=== PATIENT | female | born 1930 | race Caucasian/White ===

== ENCOUNTER 2017-02-10 01:55 | Inpatient (IN) | payer OTHER ==
[~2017-02-10] VITALS: Ht 152.4 cm; Wt 48.6 kg
[2017-02-10] VITALS (7 sets, daily range): BP systolic 130–155; BP diastolic 54–76; PULSE 81–98; RESP 17–30; TEMP 98.1; Ht 152.4 cm; Wt 48.6 kg
[2017-02-10] MEDS ORDERED: ASPIRIN 325 MG TAB PO STA (02:08)
[2017-02-10] MEDS ORDERED: SOD CHLORIDE 0.9% 1,000 ML IV STA (02:08)
--- NOTE | 2017-02-10 02:23 | RADRPT ---
PROCEDURE: CT Brain without contrast. CLINICAL INDICATION: Neurologic deficit. TECHNIQUE: A CT of the brain was performed utilizing axial sections from the skull base through th e vertex without contrast. Multiplanar re-formations were generated. Images were reviewed on a high- resolution PACS workstation. CTDIvol: 44.46 mGy. DLP: 720.23 mGy-cm. One or more of the following dose reduction techniques were used: - Automated exposure control. - Adjustment of the mA and/or kV according to patient size. - Use of iterative reconstruction technique. COMPARISON: None available FINDINGS: There is moderate generalized volume loss. No hydrocephalus is seen. There is no mass effect. No ac tangirnaq intracranial hemorrhage is identified. There is no extra-axial collection. No CT evidence of ac tangirnaq infarction is identified. There is patchy low attenuation in the supratentorial white matter, a nonspecific finding which most likely represents the sequela of mild chronic microvascular ischemic disease. There are extensive atherosclerotic arterial calcifications. There is no significant mucosal disease in the paranasal sinuses. The visualized mastoid air cells a re clear. The ossesous structures are unremarkable. The extracranial soft tissues are unremarkable. IMPRESSION: 1. No acute intracranial pathology. 2. Moderate generalized volume loss. 3. Mild chronic microvascular ischemic changes. 4. Atherosclerotic arterial calcifications. Critical Results were called to Dr. Morales at 02:21 a.m. on 02/10/2017. RPTAT: HTAR .Mckinley Tidwell MD, Date Time Electronically viewed and signed by .Mckinley Tidwell MD, on 02/10/2017 02:22 .R/
--- NOTE | 2017-02-10 02:50 | RADRPT ---
PROCEDURE: XR Chest. CLINICAL INDICATION: Possible stroke. TECHNIQUE: Single frontal view of the chest was obtained COMPARISON: Chest dated 11/24/2007. FINDINGS: Left anterior chest wall dual chamber cardiac pacer is new over interval. Lead tips overlie the exp ected location of the right atrium right ventricle. The cardiac pacer leads appear intact. Surgical changes again seen over the sternum and at the left lung apex. There is cardiomegaly with a calcified tortuous thoracic aorta. Cardiomegaly is increased over inter laly. Tortuosity of the thoracic aorta is increased over the interval. There is elevation of the left hemidiaphragm again seen, with loops of air-filled bowel interposed b elow the hemidiaphragm. This is without significant global climate change researcher the interval. There is left lung base atelectasis. There is mild pulmonary vascular congestion. There is no pleural effusion or pneumothorax. IMPRESSION: 1. Cardiomegaly, with mild pulmonary vascular congestion. 2. Left lung base atelectasis. 3. Interval left anterior chest wall dual chamber cardiac pacer, without evident complication. RPTAT: [facility] Physician Patrice Date Time Electronically viewed and signed by Physician Patrice on 02/10/2017 02:49 RS/
[2017-02-10 02:57] LABS: ADD SCAN DIFF NO
[2017-02-10 02:59] LABS: BASOPHILS % 0.2 % (0.0-2.0); HEMATOCRIT 33.8 % (37.0-47.0); HEMOGLOBIN 11.6 g/dl (12.0-16.0); LYMPHOCYTES # 0.7 10^3/ul (0.8-2.9); LYMPHOCYTES % 11.8 % (15.0-51.0); MEAN CORPUSCULAR HEMOGLOBIN 30.8 pg (29.0-33.0); MEAN CORPUSCULAR HGB CONC 34.3 g/dl (32.0-37.0); MEAN CORPUSCULAR VOLUME 89.7 fl (82.0-101.0); MEAN PLATELET VOLUME 9.9 fl (7.4-10.4); MONOCYTE # 0.8 10^3/ul (0.3-0.9); MONOCYTES % 14.8 % (0.0-11.0); PLATELET COUNT 198 10^3/UL (140-415); RED BLOOD COUNT 3.77 10^6/ul (4.20-5.40); RED CELL DISTRIBUTION WIDTH 12.6 % (11.5-14.5); WHITE BLOOD COUNT 5.5 10^3/ul (4.8-10.8)
[2017-02-10 03:10] LABS: ALBUMIN 3.7 g/dl (3.3-4.9)
[2017-02-10 03:11] LABS: POTASSIUM 4.2 mmol/L (3.5-5.1)
[2017-02-10 03:13] LABS: ALBUMIN/GLOBULIN RATIO 1.08; BILIRUBIN,INDIRECT 0.5 mg/dl (0-1.1); BILIRUBIN,TOTAL 0.5 mg/dl (0.2-1.3); CALCIUM 8.6 mg/dl (8.4-10.2); CREATININE 0.7 mg/dl (0.44-1.00); TOTAL PROTEIN 7.1 g/dl (6.1-8.1)
[2017-02-10 03:25] LABS: TROPONIN-I 0.016 ng/ml (0.00-0.12)
[2017-02-10] MEDS ORDERED: CEFTRIAXONE 1 GM/50 ML (PMX) 50 ML IVPB ONE (03:30)
[2017-02-10 03:56] LABS: ADD UMIC YES; URINE BILIRUBIN (Dip) NEGATIVE (NEGATIVE); URINE BLOOD (Dip) NEGATIVE (NEGATIVE); URINE COLOR LT. YELLOW (YELLOW); URINE GLUCOSE (Dip) NEGATIVE (NEGATIVE); URINE KETONES (Dip) TRACE (NEGATIVE); URINE LEUKOCYTE ESTERASE (Dip) 1+ (NEGATIVE); URINE NITRITE (Dip) NEGATIVE (NEGATIVE); URINE TOTAL PROTEIN (Dip) TRACE (NEGATIVE); URINE UROBILINOGEN (Dip) 0.2 E.U./dL (0.1-1.0)
[2017-02-10] MEDS ORDERED: ASPIRIN 300 MG SUPP PR ONE (04:30)
[2017-02-10 04:31] LABS: BACTERIA,URINE FEW; SQUAMOUS EPITHELIAL CELL,UR FEW; URINE RBCS NONE SEEN /HPF (0)
--- NOTE | 2017-02-10 04:42 | ERA ---
ER Documentation Chief Complaint Date/Time DATE: 02/10/17 TIME: 04:34 Chief Complaint aphasia x 3 hours; last known well 2300 HPI 86-year-old woman brought in by EMS from home for 3 hours of a fascia, patient last seen normal by family members 3 hours ago. They stated she had difficulty speaking and was generally not speaking to any other family member for 3 hours she did not have expressive dysarthria, no weakness in her arms or legs, no vomiting or diarrhea, no loss of consciousness, no seizure activity, no facial asymmetry, no drooling or difficulty swallowing. Patient has had no recent headaches, chest pain, or abdominal pain. Patient was transported here without further complications. ROS All systems reviewed and are negative except as per history of present illness. Allergies Allergies: Coded Allergies: No Known Allergy (Verified Allergy, Unknown, 11/25/07) PMhx/Soc Medical and Surgical Hx: Unable to obtain Hx Alcohol Use: No Hx Substance Use: No Hx Tobacco Use: No Smoking Status: Never smoker FmHx Family History: No diabetes Physical Exam Vitals Vital Signs Date Time Temp Pulse Resp B/P Pulse Ox O2 Delivery O2 Flow Rate FiO2 02/10/17 03:37 100.5 83 23 117/62 100 Nasal Cannula 02/10/17 03:20 20 125/71 100 Nasal Cannula 02/10/17 02:51 Nasal Cannula 2 02/10/17 02:50 82 21 117/61 100 Nasal Cannula 02/10/17 02:30 83 20 122/76 100 Nasal Cannula 02/10/17 02:20 76 22 126/63 Nasal Cannula 02/10/17 01:57 99.2 83 18 132/67 100 Physical Exam GENERAL: Well-developed, well-nourished, appears dehydrated, febrile HEENT: Dry mucous membranes, pink conjunctiva, no cervical spine tenderness or step-off deformities, no goiter, no jaundice or icterus, extraocular movements intact without pain. No submandibular induration, and no pharyngeal erythema NEURO: Able to follow simple commands, no pronator drift, positive aphasia, cranial nerves II through XII intact bilaterally, pupils equal round reactive to light, no focal deficits or facial asymmetry, sensation intact distally Strength 5/5 in upper and lower extremities bilaterally CARDIAC: Regular rate and rhythm, no murmurs rubs or gallops LUNGS: Clear bilaterally no wheezing crackles or stridor ABDOMEN: Soft nontender, no guarding, no rigidity, no rebound, no psoas sign no obturator sign. Normoactive bowel sounds SKIN: Warm and dry to touch, no abrasions, contusions, or hematomas, no lacerations, no ecchymosis, no target lesions, and without ulcers EXTREMITIES: No clubbing cyanosis or edema, calves are bilaterally symmetrical, no Homans sign, no popliteal cord sign. Distal pulses equal and bilateral PSYCH: Normal affect without agitation or irritability Result Diagram: 02/10/17 0251 02/10/17 0251 Results 24 hrs Laboratory Tests Test 02/10/17 02:28 02/10/17 02:51 02/10/17 03:23 Bedside Glucose 216mg/dL White Blood Count 5.510^3/ul Red Blood Count 3.7710^6/ul Hemoglobin 11.6g/dl Hematocrit 33.8% Mean Corpuscular Volume 89.7fl Mean Corpuscular Hemoglobin 30.8pg Mean Corpuscular Hemoglobin Concent 34.3g/dl Red Cell Distribution Width 12.6% Platelet Count 06956^3/UL Mean Platelet Volume 9.9fl Neutrophils % 73.0% Lymphocytes % 11.8% Monocytes % 14.8% Eosinophils % 0.0% Basophils % 0.2% Nucleated Red Blood Cells % 0.0/100WBC Neutrophils # 4.010^3/ul Lymphocytes # 0.710^3/ul Monocytes # 0.810^3/ul Eosinophils # 0.010^3/ul Basophils # 0.010^3/ul Nucleated Red Blood Cells # 0.010^3/ul Sodium Level 127mmol/L Potassium Level 4.2mmol/L Chloride Level 93mmol/L Carbon Dioxide Level 24mmol/L Anion Gap 14 Blood Urea Nitrogen 13mg/dl Creatinine 0.70mg/dl Glucose Level 220mg/dl Hemoglobin A1c 6.6% Calcium Level 8.6mg/dl Total Bilirubin 0.5mg/dl Direct Bilirubin 0.00mg/dl Indirect Bilirubin 0.5mg/dl Aspartate Amino Transf (AST/SGOT) 41IU/L Alanine Aminotransferase (ALT/SGPT) 36IU/L Alkaline Phosphatase 86IU/L Troponin I 0.016ng/ml Total Protein 7.1g/dl Albumin 3.7g/dl Globulin 3.40g/dl Albumin/Globulin Ratio 1.08 Urine Color LT. YELLOW Urine Clarity CLEAR Urine pH 6.0 Urine Specific Custer 1.015 Urine Ketones TRACE Urine Nitrite NEGATIVE Urine Bilirubin NEGATIVE Urine Urobilinogen 0.2 E.U./dL Urine Leukocyte Esterase 1+ Urine Microscopic RBC NONE SEEN/HPF Urine Microscopic WBC 2-5/HPF Urine Squamous Epithelial Cells FEW Urine Bacteria FEW Urine Hemoglobin NEGATIVE Urine Glucose NEGATIVE% Urine Total Protein TRACE Current Medications Medications (Trade) Dose Ordered Sig/Otis Route PRN Reason Start Time Stop Time Status Last Admin Dose Admin Sodium Chloride (NS) 1,000 ml @ 1,000 mls/hr Q1H STAT IV 02/10/17 02:08 02/10/17 03:07 DC 02/10/17 04:05 Aspirin 325 mg 325 mg ONCE STAT PO 02/10/17 02:08 02/10/17 02:10 DC Ceftriaxone Sodium (Rocephin) 50 ml @ 100 mls/hr ONCE ONCE IVPB 02/10/17 03:30 02/10/17 03:59 DC 02/10/17 04:07 Aspirin (Aspirin) 300 mg ONCE ONCE KS 02/10/17 04:30 02/10/17 04:31 DC 02/10/17 04:30 Procedures/MDM IV line was established patient was placed on continuous churn buttermaker rhythm strip revealed an intermittently paced rhythm at about 90 bpm. Patient was febrile. Blood and urine cultures have been ordered results are pending I will follow- up. Blood sugar was normal. Patient presented with 3 hours of aphasia and there was concern for stroke although unlikely, code stroke was called. Patient could not pass her swallow study technically because she did present with aphasia. CT scan of the brain was negative for acute bleed mass or shift. Tele-neurology was immediately consulted and they called back about an hour after patient's arrival. We discussed the patient's case including her aphasia and fever and the tele-neurologist recommended against TPA and also stated presentation patient was out of the window for TPA treatment. CBC was unremarkable, electrolytes normal, liver function tests were normal, troponin was negative. Urine analysis was concerning for infection. I administered 1 L normal saline intravenously, aspirin 300 mg per rectum for neuro protective measures, and ceftriaxone 1 g IV for possible UTI. One view chest x-ray performed, read by me there is atelectatic changes bilaterally and a pacemaker in the left chest, no acute infiltrates, no pneumothorax. Patient admitted to telemetry setting for continued medical management, IV antibiotics, and neurology consultation. Further imaging to be deferred to admitting team. Departure Diagnosis: Primary Impression: Altered level of consciousness Additional Impressions: UTI (urinary tract infection) Qualified Code: N30.00 - Acute cystitis without hematuria Dehydration Aphasia Condition: DONALD Trammell MD Feb 10, 2017 04:42
[2017-02-10 07:14] LABS: INR 1.08; PT RATIO 1.1
[2017-02-10 07:15] LABS: PARTIAL THROMBOPLASTIN TIME 33.7 Sec (25.0-35.0)
[2017-02-10] MEDS ORDERED: NACL 0.9% 3 ML SYG IV SCH (08:30)
[2017-02-10] MEDS ORDERED: morphine 2 MG INJ IV PRN (08:30)
[2017-02-10] MEDS ORDERED: ACETAMINOPHEN 325 MG TAB PO PRN (08:30)
[2017-02-10] MEDS ORDERED: ONDANSETRON 4 MG INJ IV PRN (08:30)
--- NOTE | 2017-02-10 09:51 | RADRPT ---
PROCEDURE: US Carotids. CLINICAL INDICATION: Stroke. TECHNIQUE: Multiple sonographic of the carotid arteries were obtained utilizing olea scale imaging . Color and Doppler imaging was performed. The images were reviewed on a PACS workstation. COMPARISON: No prior studies are available for comparison. FINDINGS: Location Right Left CCA 78 cm/sec 149 cm/sec Prox ICA 40 cm/sec 95 cm/sec Mid ICA 46 cm/sec 98 cm/sec Dist ICA 78 cm/sec 67 cm/sec ECA 7 cm/sec 109 cm/sec ICA/CCA 1.1 0.7 Antegrade flow is seen within the vertebral arteries bilaterally. No significant plaque is seen with in the carotid system bilaterally. No hemodynamically significant stenosis or occlusion is identifi ed. IMPRESSION: 1. No evidence for hemodynamically significant stenosis - validated velocity measurements with angio graphic measurements, velocity criteria are extrapolated from diameter data as defined by the Societ y of Radiologists in Ultrasound Consensus Conference Radiology 2003; 229;340-346. This study does i ndirectly reference the measurement of the distal ICA diameter as the denominator for stenosis measu rement. 2. Antegrade flow seen within the vertebral arteries bilaterally. SRU Consensus Conference Criteria for the Diagnosis of Carotid Artery Stenosis Degree of Stenosis, % ICA PSV, cm/sec Plaque Estimate, % ICA/CCA PSV Ratio Normal <125 None <2.0 <50 <125 <50 <2.0 50 69 125-230 >50 2.0-4.0 >70 but less than near occlusion >230 >50 <4.0 Near occlusion High, low, or undetectable Visible Variable Total occlusion Undetectable Visible, no detectable lumen Not applicable *Cartoid artery stenosis: olea-scale and Doppler US diagnosis. Society of Radiologists in Ultrasound Consensus Conference. Radiology 2003; 229: 340-346 RPTAT: EE .Khalif Mendoza MD, Date Time Electronically viewed and signed by .Khalif Mendoza MD, on 02/10/2017 09:51 .A/
--- NOTE | 2017-02-10 11:22 | HP ---
Date/Time of Note Date/Time of Note DATE: 02/10/17 TIME: 11:19 Assessment/Plan VTE Prophylaxis VTE Prophylaxis Intervention: heparin Assessment/Plan Assessment/Plan 1. TIA vs acute CVA - Aspirin, statin, and subq Heparin - CT head was neg. Will obtain MRI of the brain - Neurology consult will be placed - PT eval and speech/swallow Eval - Will check Fasting lipids and A1c 2. Hyponatremia - NS IVF for now HPI/ROS Admit Date/Time Admit Date/Time Hx of Present Illness 86-year-old woman brought in by EMS from home for 3 hours of a fascia, patient last seen normal by family members 3 hours ago. They stated she had difficulty speaking and was generally not speaking to any other family member for 3 hours she did not have expressive dysarthria, no weakness in her arms or legs, no vomiting or diarrhea, no loss of consciousness, no seizure activity, no facial asymmetry, no drooling or difficulty swallowing. Patient has had no recent headaches, chest pain, or abdominal pain. Patient was transported here without further complications. In ER, CT head was done and was neg. Her sodium was 127. PMH/Family/Social Past Medical History Medical History: no pertinent history Social History Alcohol Use: none Smoking Status: Never smoker Drug Use: none Exam/Review of Systems Vital Signs Vitals Vital Signs Date Time Temp Pulse Resp B/P Pulse Ox O2 Delivery O2 Flow Rate FiO2 02/10/17 06:50 98.1 83 20 130/68 100 Nasal Cannula 2.0 Exam Constitutional: other (looks comfortable. Attemted to say her name, but had difficulty) Head: atraumatic, normocephalic Eyes: EOMI, PERRL Respiratory: clear to auscultation, normal air movement Cardiovascular: nl pulses, regular rate and rhythm Gastrointestinal: non-tender, soft Neurological: other (+dysarthria. sensations intact. No focal weakness. Had decreased garland maker of both hands, but likely generalized weakness and age related) Labs Result Diagram: 02/10/17 0251 02/10/17 0251 Medications Medications Current Medications Ondansetron HCl (Zofran Inj) 4 mg Q6H PRN IV NAUSEA AND/OR VOMITING; Start 02/10 at 08:30 Aspirin (Aspirin) 81 mg DAILY PO ; Start 02/11/17 at 09:00 Acetaminophen (Tylenol Tab) 650 mg Q6H PRN PO PAIN LEVEL 1-3 OR FEVER; Start at 08:30 Morphine Sulfate (morphine) 2 mg Q4H PRN IV PAIN LEVEL 7-10; Start 02/10/17 at 08:30 Heparin Sodium (Porcine) (Heparin (5000 Units/0.5 ml)) 5,000 unit Q12 SC ; Start 02/10/17 at 09:00 Atorvastatin Calcium (Lipitor) 20 mg QHS PO ; Start 02/10/17 at 21:00 KHARI BLOOM MD Feb 10, 2017 11:22
[2017-02-10] MEDS: HEPARIN 5,000 UNIT/0.5 ML VIAL SC SCH ×2 (12:29→21:02)
[2017-02-10] MEDS: SOD CHLORIDE 0.9% 1,000 ML IV SCH (12:30)
--- NOTE | 2017-02-10 15:23 | CONS ---
DATE OF ADMISSION: 02/10/2017 DATE OF CONSULTATION: 02/10/2017 Thank you, Dr. Chiu, for your kind referral for evaluation of CVA. HISTORY OF PRESENT ILLNESS: The patient presented with 3 hours of impaired speech. She was evaluat ed by stroke neurologist who did not find her meeting criteria for TPA because she was outside of th e timeframe window. Patient had CAT scan of the head, which shows absence of acute abnormality. Chest x-ray: Cardiomeg yon, vascular congestion, left basilar atelectasis. Carotid ultrasound within normal limits. No kn own previous medical history. No recorded medications prior to admission. MEDICATIONS: Currently, she is on: 1. Aspirin. 2. Lipitor 20. 3. Heparin for DVT prevention. 4. She received 1 dose of ceftriaxone. According to ER note, at some point she was febrile at 100.5. Her labs show hemoglobin 11.6, hematocrit 33.8, normal WBCs and platelets. Sodium 127, chloride 93. Hemoglobin A1c 6.6. The rest of comprehensive metabolic panel within normal limits. Normal PT, P TT. Urinalysis 1+ leukocyte esterase, trace of ketones. The monitor shows atrial fibrillation. ALLERGIES: NONE. SOCIAL HISTORY, FAMILY HISTORY, REVIEW OF SYSTEMS: Unknown; the patient is not able to provide. PHYSICAL EXAMINATION: VITAL SIGNS: A 98.1 temperature, 82 pulse, 18 respirations, 128/76 blood pressure. GENERAL: She is not in acute distress, lying on gurney in the emergency room. HEENT: Normocephalic, atraumatic head. NECK: No carotid bruits. No thyromegaly. LUNGS: Clear to auscultation bilaterally. CARDIAC: Irregularly irregular cardiac rhythm. EXTREMITIES: No cyanosis, clubbing or edema. NEUROLOGIC: She is awake. She follows commands with prompting. She is dysarthric and also has lydia e naming difficulties and is aphasic. She is able to repeat and follow simple commands, but not com plex commands. Cranial nerve examination shows intact visual alvarado to visual threat bilaterally. Pupils reactive from 3 to 2 mm bilaterally. Extraocular movements intact without nystagmus. Symmet rical face. Preserved facial strength. Corneal reflexes present bilaterally. Tongue is in midline . Motor strength examination seems to be preserved. No pronator drift. Sensory examination grossl y intact to light touch. She withdraws to noxious stimuli. Deep tendon reflexes 2+ upper extremiti es, 1+ knee jerks, absent ankle jerks. Downgoing toes bilaterally. Coordination preserved on finge r-to-finger testing. No dysmetria or tremor. Gait was not assessed. IMPRESSION: Sudden onset of aphasia, also some dysphagia as the patient failed swallow study. No k nown past medical history. The patient is not able to provide all the details, but her hemoglobin A 1c is elevated. At least on the monitor she seems to have some irregularity, possibly atrial fibril lation, but I did not see the EKG; I will leave that to the primary doctor to decide. I agree that patient should be continued on aspirin for now. We will obtain MRI of the brain. Carotid ultrasoun d was done and will obtain echocardiogram. Continue Lipitor. We will obtain a lipid profile and sw allow evaluation to be repeated and speech therapy to be started. Thank you very much for this interesting consultation. Keep patient euglycemic. Usually it is okay to elevate the blood pressure up to 220/140 in the first 1 or 2 days after acute stroke, then shorty ally obtain control afterwards. Dictated By: RHONDA KENNY/JEOVANNY Conf#: [id number] DID#: [id number]
[2017-02-10] MEDS: ATORVASTATIN 20 MG TAB PO SCH (21:01)
[2017-02-10] MEDS ORDERED: DEXTROSE 50% 50 ML SYRINGE IV PRN ×2 (23:45)
[2017-02-10] MEDS ORDERED: GLUCAGON 1 MG INJ IM PRN (23:45)
[2017-02-10] MEDS ORDERED: GLUCOSE GEL 15 GRAM TUBE PO PRN ×2 (23:45)
[2017-02-10] MEDS ORDERED: GLUCOSE GEL 15 GRAM TUBE BUCCAL PRN (23:45)
[2017-02-11] VITALS (13 sets, daily range): BP systolic 122–168; BP diastolic 68–79; PULSE 81–98; RESP 18–20
[2017-02-11] MEDS: METOPROLOL 25 MG TAB PO SCH ×3 (00:10→20:47)
[2017-02-11] MEDS: SOD CHLORIDE 0.9% 1,000 ML IV SCH ×3 (00:50→14:10)
[2017-02-11] MEDS: ACCU-CHEK XX SCH (02:00)
[2017-02-11] MEDS ORDERED: GLIP5TAB13 PO (05:44)
[2017-02-11] MEDS ORDERED: OMEP40CA6 PO (05:44)
[2017-02-11] MEDS ORDERED: METO-448 PO (05:44)
[2017-02-11] MEDS ORDERED: AMLO-147 PO (05:44)
[2017-02-11] MEDS ORDERED: SUCR1TAB56 PO (05:44)
[2017-02-11] MEDS ORDERED: CALC-516 PO (05:44)
[2017-02-11] MEDS ORDERED: LOSA100T7 PO (05:44)
[2017-02-11] MEDS ORDERED: FURO40TA4 PO (05:44)
[2017-02-11] MEDS ORDERED: RIVA15TA PO (05:44)
[2017-02-11] MEDS ORDERED: GABA300C16 PO (05:44)
[2017-02-11] MEDS ORDERED: OMEG1CAP20 PO (05:44)
[2017-02-11 07:08] LABS: ADD SCAN DIFF NO
[2017-02-11 07:15] LABS: ABNORMAL IP MESSAGE 1; BASOPHILS % 0.2 % (0.0-2.0); HEMATOCRIT 31.5 % (37.0-47.0); HEMOGLOBIN 10.7 g/dl (12.0-16.0); LYMPHOCYTES # 0.6 10^3/ul (0.8-2.9); LYMPHOCYTES % 13.2 % (15.0-51.0); MEAN CORPUSCULAR HEMOGLOBIN 31.1 pg (29.0-33.0); MEAN CORPUSCULAR VOLUME 91.6 fl (82.0-101.0); MEAN PLATELET VOLUME 9.8 fl (7.4-10.4); MONOCYTE # 0.6 10^3/ul (0.3-0.9); MONOCYTES % 13.7 % (0.0-11.0); NEUTROPHIL # 3.2 10^3/ul (1.6-7.5); NEUTROPHILS % 72.7 % (39.0-77.0); PLATELET COUNT 206 10^3/UL (140-415); RED BLOOD COUNT 3.44 10^6/ul (4.20-5.40); RED CELL DISTRIBUTION WIDTH 12.7 % (11.5-14.5); WHITE BLOOD COUNT 4.5 10^3/ul (4.8-10.8)
[2017-02-11 07:33] LABS: ALBUMIN 3.4 g/dl (3.3-4.9)
[2017-02-11 07:34] LABS: POTASSIUM 3.6 mmol/L (3.5-5.1)
[2017-02-11 07:36] LABS: BILIRUBIN,INDIRECT 0.3 mg/dl (0-1.1); BILIRUBIN,TOTAL 0.3 mg/dl (0.2-1.3); CREATININE 0.56 mg/dl (0.44-1.00); TOTAL PROTEIN 6.8 g/dl (6.1-8.1)
[2017-02-11 07:37] LABS: CALCIUM 8.2 mg/dl (8.4-10.2); CHOL/HDL RATIO 2.8 RATIO; MAGNESIUM 2.1 mg/dl (1.7-2.5)
[2017-02-11] MEDS: INSULIN ASPART [NOVOLOG] 3 ML PEN SC SCH ×4 (07:55→20:49)
[2017-02-11 07:58] LABS: THYROID STIMULATING HORMONE 0.362 MIU/L (0.465-4.680)
[2017-02-11] MEDS: HEPARIN 5,000 UNIT/0.5 ML VIAL SC SCH ×2 (08:50→20:49)
[2017-02-11] MEDS ORDERED: ASPIRIN 81 MG TAB PO SCH (09:00)
--- NOTE | 2017-02-11 12:04 | PN ---
DATE: 02/11/2017 SUBJECTIVE DATA: Denies any chest pain or dyspnea. Still having expressive aphasia. The patient was up and walking with physical therapy today. OBJECTIVE DATA: VITAL SIGNS: Temperature 98.5, pulse rate 96, respiratory rate 20, blood pressure 141/68, oxygen saturation 98% on low flow O2. GENERAL: This is an adequately built [place] female lying in bed in no apparent distress. HEENT: Head normocephalic and atraumatic. Eyes: Anicteric sclerae. Conjunctivae clear. ENT: Nasal septum is midline. Oral mucosa is moist. NECK: Supple. No JVD noticed. RESPIRATORY: Bilaterally clear to auscultation. No adventitious breath sounds. No use of accessory muscles of respiration. CARDIAC: Irregularly irregular rhythm. No obvious murmurs heard. Median sternotomy scar. ABDOMEN: Soft, nontender and nondistended. Bowel sounds positive in all 4 quadrants. GENITOURINARY: Deferred. EXTREMITIES: No cyanosis, no clubbing, no edema. Peripheral pulses are palpable. NEUROLOGIC: The patient is awake, alert and oriented. Moves all 4 extremities. Expressive aphasia. SKIN: Normal skin turgor. ALLERGIES: ASPIRIN. LABORATORY AND DIAGNOSTIC DATA: WBC 4.5, hemoglobin 10.7, hematocrit 31.5, platelet count 206. Sodium 130, potassium 3.6, chloride 102, carbon dioxide 22 , anion gap 11, BUN 9, creatinine 0.56, glucose 162, calcium 8.2, hemoglobin A1c 6.6. ASSESSMENT & PLAN: 1. Possible underlying acute stroke versus TIA. Seen and evaluated by neurology. A brain CT scan negative for any acute findings. Unable to do brain MRI because of the pacemaker. THE PATIENT IS ALLERGIC TO ASPIRIN. The patient was started on Plavix. The patient will be continued on statins. Carotid Doppler study negative for any hemodynamically significant stenosis. Pending 2D echocardiogram. 2. Atrial flutter. We will involve Cardiology on the case. The patient probably needs to be on anticoagulation for stroke prophylaxis if the patient has chronic atrial flutter. 3. Coronary artery disease. 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 Continue Plavix. Continue home beta blockers. 4. Type 2 diabetes mellitus. The patient currently on sliding scale insulin. 5. Acute encephalopathy. Possibly metabolic in origin Resolved. 6. Dyslipidemia. Continue statins. 7. Fluid, electrolytes and nutrition. Carbohydrate controlled, low cholesterol diet. 8. Deep venous thrombosis prophylaxis with subcutaneous heparin. 9. Gastrointestinal prophylaxis. Histamine 2 receptor blockers. PLAN: 1. Continue inpatient care. 2. Await 2D echocardiogram. 3. Await cardiology evaluation. The case was discussed with Dr. Chino. MANJIT CHINO MD, AM/JEOVANNY Conf#: [id number] DID#: [id number] MTDD
--- NOTE | 2017-02-11 14:33 | RADRPT ---
Echocardiogram Report Patient Name: DOMENICO KRAMER Gender: Female Date: 1930 Study Date: 11-Feb-2017 Supervisor [employer]: [facility] Location: 503 Ref. Physician: KHARI BLOOM Quality: Technically Difficult Study Procedures: Transthoracic echocardiogram with complete 2D, M-Mode, and doppler examination. Indications: STROKE. 2D/M Mode Doppler Measurement Value Normal Ranges Measurement Value Normal Ranges LVIDd 2D 3.7 3.5 - 5.6 cm AV Peak Jason 1.8 m/sec LVIDs 2D 2.3 2.1 - 4.1 cm AV Peak PG 13.0 mmHg FS 2D 37.3 % LVOT Peak Jason 1.4 m/sec LVPWd 2D 1.1 0.6 - 1.1 cm LVOT Peak PG 7.0 mmHg IVSd 2D 1.0 0.6 - 1.1 cm MV E Peak Jason 1.6 m/sec IVS/LVPW 2D 0.9 MR Peak PG 113.0 mmHg AoR Diam 2D 2.2 2.0 - 3.7 cm MR Peak Jason 5.3 m/sec LA/Ao 2D 2 0 - 1 TR Peak Jason 3.3 m/sec EDV 2D 49.4 cm3 TR Peak PG 43.0 mmHg ESV 2D 12.2 cm3 LA Dimen 2D 4.3 2.3 - 4.0 cm Findings Left Ventricle: Normal left ventricular systolic function. Hyperdynamic left ventricular systolic function. Left ventricular wall thickness upper limits of normal. Ejection fraction is visually estimated at >70 %. Tissue Doppler/Mitral Doppler indices are indeterminate in this study due to the presence of arrhythmia. Right Ventricle: Not well visualized. Left Atrium: There is moderate enlargement of left atrium. Right Atrium: Not well visualized. Mitral Valve: Mild mitral leaflet calcification. Mild mitral annular calcification. Mild to moderate mitral valve regurgitation. Aortic Valve: No hemodynamically significant aortic stenosis by doppler. Aortic cusps appear mildly calcified. Trace aortic valve regurgitation. Tricuspid Valve: Estimated peak PA systolic pressure 51 mmHg. There is mild tricuspid regurgitation. Pulmonic Valve: There is trace pulmonic regurgitation. Pericardium: Normal pericardium with no significant pericardial effusion. Aorta: Normal aortic root. IVC: Inferior vena cava with poor respiratory collapse, however, patient on ventilator. Conclusions 1.The left ventricle is normal in size with hyperdynamic systolic function. 2.Estimated left ventricular ejection fraction of >70%. 3.Moderate left atrial enlargement. 4.Estimated RVSP of 51 mmHg. Electronically Signed By: Andre Padilla 11-Feb-2017 14:32:33 -0700 Patient Name: DOMENICO KRAMER Study Date: 11-Feb-2017 [id number]
[2017-02-11] MEDS: FAMOTIDINE 20 MG TAB PO SCH (18:02)
[2017-02-11] MEDS: ATORVASTATIN 20 MG TAB PO SCH (20:47)
[2017-02-11] MEDS: INSULIN GLARGINE [LANtus] 3 ML PEN SC SCH (20:48)
--- NOTE | 2017-02-11 21:54 | CONS ---
DATE OF ADMISSION: 02/10/2017 DATE OF CONSULTATION: 02/11/2017 REFERRING PHYSICIAN: Vikash Yusuf NP REASON FOR CONSULTATION: Atrial flutter and possible cerebrovascular accident. HISTORY OF PRESENT ILLNESS: Thank you for this referral. History obtained from the patient, maynor grissom with multiple family members at the bedside. This is a pleasant 86-year-old Filipina female wi th history of atrial fibrillation and flutter status post sick sinus syndrome with a permanent pacem esteban, who was admitted with confusion. According to the family, the patient has had a headache for a few days. Yesterday morning, she was noted to be mumbling and she was confused, brought into the emergency room. Her speech has improved, but still has significant slurred speech. She is not conf used anymore. Head CT was unremarkable, but MRI could not be done due to the patient's pacemaker. The patient apparently is on chronic Xarelto. PAST MEDICAL HISTORY: History of diabetes, history of hypertension, history of sick sinus syndrome with permanent pacemaker, history of possible dyslipidemia. MEDICATIONS AT HOME: Reviewed. ALLERGIES: REPORTEDLY TO [facility]. FAMILY HISTORY: No reported coronary artery disease. SOCIAL HISTORY: Does not smoke or drink. REVIEW OF SYSTEMS: As above negative. PHYSICAL EXAMINATION: VITAL SIGNS: Temperature 97.7, heart rate of 93, blood pressure 168/78, respiration rate of 18, sat urating 99%. HEENT: Normocephalic, atraumatic. Pupils are equal. CARDIOVASCULAR: Irregularly irregular, systolic murmur. PULMONARY: With no wheezes. CHEST: Status post pacemaker. GASTROINTESTINAL: Soft, nontender. EXTREMITIES: With trivial edema. NEUROLOGIC: Awake and alert, oriented x3 with slurred speech. PSYCHIATRIC: Calm and pleasant. LABORATORY: WBC of 4.5, hemoglobin 10.7, platelets of 206. Sodium 131, potassium 3.6, BUN of 9, cr eatinine 0.56, glucose 162, LDL of 77, HDL of 42. TSH 0.3. Free T4 is 1.66. EKG flutter, ve ntricular demand pacemaker, nonspecific T-wave abnormalities. CT of the head shows no acute intracr anial pathology. Chest x-ray was personally reviewed, which shows cardiomegaly status post dual katharine mber permanent pacemaker. Left lung base atelectasis. Carotid ultrasound shows no significant sten osis. ASSESSMENT AND PLAN: 1. Possible cerebrovascular accident. 2. Sick sinus syndrome, permanent pacemaker. 3. Atrial flutter, chronic anticoagulation. 4. Diabetes. 5. Hypertension. RECOMMENDATIONS: We will try to interrogate the pacemaker tomorrow to see if it can be compatible w ith MRI. Permissive hypertension . Resume the patient's Xarelto as soon as okay from neurolog y standpoint given her possible acute CVA. Diabetic control as per internal medicine. Thank you for this referral. We will continue to follow along with you. Dictated By: MALCOLM GONZALES MD AV/JEOVANNY Conf#: [id number] DID#: [id number] CC: VIKASH YUSUF CELL OPERATION SUPERVISOR;*End*
[2017-02-12] VITALS (11 sets, daily range): BP systolic 137–162; BP diastolic 66–80; PULSE 79–96; RESP 18
[2017-02-12] MEDS: ACCU-CHEK XX SCH (02:00)
[2017-02-12] MEDS: SOD CHLORIDE 0.9% 1,000 ML IV SCH ×3 (03:30→16:50)
[2017-02-12] MEDS: INSULIN ASPART [NOVOLOG] 3 ML PEN SC SCH ×4 (07:55→20:43)
[2017-02-12 07:57] LABS: ADD SCAN DIFF NO
[2017-02-12 08:08] LABS: BASOPHILS % 0.2 % (0.0-2.0); EOSINOPHILS % 0.4 % (0.0-7.0); HEMATOCRIT 32.2 % (37.0-47.0); HEMOGLOBIN 10.7 g/dl (12.0-16.0); LYMPHOCYTES # 1.2 10^3/ul (0.8-2.9); LYMPHOCYTES % 22.4 % (15.0-51.0); MEAN CORPUSCULAR HEMOGLOBIN 30.8 pg (29.0-33.0); MEAN CORPUSCULAR HGB CONC 33.2 g/dl (32.0-37.0); MEAN CORPUSCULAR VOLUME 92.8 fl (82.0-101.0); MEAN PLATELET VOLUME 9.9 fl (7.4-10.4); MONOCYTE # 0.7 10^3/ul (0.3-0.9); MONOCYTES % 13.7 % (0.0-11.0); NEUTROPHIL # 3.3 10^3/ul (1.6-7.5); NEUTROPHILS % 63.1 % (39.0-77.0); PLATELET COUNT 237 10^3/UL (140-415); RED BLOOD COUNT 3.47 10^6/ul (4.20-5.40); RED CELL DISTRIBUTION WIDTH 12.7 % (11.5-14.5); WHITE BLOOD COUNT 5.3 10^3/ul (4.8-10.8)
[2017-02-12 08:15] LABS: POTASSIUM 3.4 mmol/L (3.5-5.1)
[2017-02-12 08:16] LABS: PHOSPHORUS 3.2 mg/dl (2.5-4.9)
[2017-02-12 08:18] LABS: CREATININE 0.52 mg/dl (0.44-1.00)
[2017-02-12 08:19] LABS: CALCIUM 8.3 mg/dl (8.4-10.2)
--- NOTE | 2017-02-12 09:36 | PN ---
Date/Time of Note Date/Time of Note DATE: 02/12/17 TIME: 09:35 Assessment/Plan VTE Prophylaxis VTE Prophylaxis Intervention: heparin Lines/Catheters IV Catheter Type (from [facility]): Peripheral IV Urinary Cath still in place: No Assessment/Plan Chief Complaint/Hosp Course 1. Possible underlying acute stroke versus TIA. Seen and evaluated by neurology. A brain CT scan negative for any acute findings. Unable to do brain MRI because of the pacemaker. Continue Plavix. The patient was started on Plavix. The patient will be continued on statins. Carotid Doppler study negative for any hemodynamically significant stenosis. 2. Atrial flutter. Chronic. The patient was on factor Xa inhibitors at home. This will be resumed once cleared by neurology. 3. Coronary artery disease. 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 Continue Plavix. Continue beta blockers. 4. Type 2 diabetes mellitus. Hemoglobin A1c 6.6. The patient currently on sliding scale insulin. 6. Dyslipidemia. Continue statins. 7. Hyperdynamic left ventricular systolic function. Continue to monitor. Cardiology following. 8. Pulmonary hypertension. RVSP of 51 mm Hgl as per 2D echocardiogram. Continue supplemental oxygen. 9. Fluid, electrolytes and nutrition. Carbohydrate controlled, low cholesterol diet. 10. Deep venous thrombosis prophylaxis with subcutaneous heparin. 11. Gastrointestinal prophylaxis. Histamine 2 receptor blockers. PLAN: 1. Continue inpatient care. 2. Cardiology planning on interrogation of the pacer. The case was discussed with Dr. Wolf. Problems: Subjective 24 Hr Interval Summary Free Text/Dictation Denies any chest pain. Complains of dyspnea. Exam/Review of Systems Vital Signs Vitals Vital Signs Date Time Temp Pulse Resp B/P Pulse Ox O2 Delivery O2 Flow Rate FiO2 02/12/17 08:09 84 02/12/17 07:24 98.6 18 138/66 96 02/12/17 01:30 Nasal Cannula 2.0 Intake and Output 02/11/17 02/11/17 02/12/17 15:00 23:00 07:00 Intake Total 1375 ml 540 ml Output Total 600 ml Balance 1375 ml -60 ml Exam GENERAL: This is an adequately built Mosotho female lying in bed in no apparent distress. HEENT: Head normocephalic and atraumatic. Eyes: Anicteric sclerae. Conjunctivae clear. ENT: Nasal septum is midline. Oral mucosa is moist. NECK: Supple. No JVD noticed. RESPIRATORY: Bilaterally diminished breath sounds. Minimal use of accessory muscles of respiration. Bilateral fine rales. CARDIAC: Irregularly irregular rhythm. Median sternotomy scar. ABDOMEN: Soft, nontender and nondistended. Bowel sounds positive in all 4 quadrants. GENITOURINARY: Deferred. EXTREMITIES: No cyanosis, no clubbing, no edema. Peripheral pulses are palpable. NEUROLOGIC: The patient is awake, alert and oriented. Moves all 4 extremities. Expressive aphasia. SKIN: Normal skin turgor. Results Result Diagram: 02/12/17 0655 02/12/17 0655 Results 24 hrs Laboratory Tests Test 02/11/17 12:09 02/11/17 17:32 02/11/17 20:45 02/12/17 06:25 Bedside Glucose 172 165 178 Phosphorus Level 3.2 Magnesium Level 2.0 Test 02/12/17 06:55 02/12/17 08:14 White Blood Count 5.3 Red Blood Count 3.47 L Hemoglobin 10.7 L Hematocrit 32.2 L Mean Corpuscular Volume 92.8 Mean Corpuscular Hemoglobin 30.8 Mean Corpuscular Hemoglobin Concent 33.2 Red Cell Distribution Width 12.7 Platelet Count 237 Mean Platelet Volume 9.9 Neutrophils % 63.1 Lymphocytes % 22.4 Monocytes % 13.7 H Eosinophils % 0.4 Basophils % 0.2 Nucleated Red Blood Cells % 0.0 Neutrophils # 3.3 Lymphocytes # 1.2 Monocytes # 0.7 Eosinophils # 0.0 Basophils # 0.0 Nucleated Red Blood Cells # 0.0 Sodium Level 137 Potassium Level 3.4 L Chloride Level 102 Carbon Dioxide Level 25 Anion Gap 13 Blood Urea Nitrogen 9 Creatinine 0.52 Glucose Level 89 # Calcium Level 8.3 L Bedside Glucose 81 Medications Medications Current Medications Ondansetron HCl (Zofran Inj) 4 mg Q6H PRN IV NAUSEA AND/OR VOMITING; Start 02/10 at 08:30 Aspirin (Aspirin) 81 mg DAILY PO ; Start 02/11/17 at 09:00; Status Future Hold Acetaminophen (Tylenol Tab) 650 mg Q6H PRN PO PAIN LEVEL 1-3 OR FEVER; Start at 08:30 Morphine Sulfate (morphine) 2 mg Q4H PRN IV PAIN LEVEL 7-10; Start 02/10/17 at 08:30 Heparin Sodium (Porcine) (Heparin (5000 Units/0.5 ml)) 5,000 unit Q12 SC Last administered on 02/11/17 20:49; Admin Dose 5,000 UNIT; Start 02/10/17 at 09:00 Atorvastatin Calcium 20 mg 20 mg QHS PO Last administered on 02/11/17 20:47; Admin Dose 20 MG; Start 02/10/17 at 21:00 Sodium Chloride (NS) 1,000 ml @ 75 mls/hr [id number] IV Last administered on 05:46; Admin Dose 75 MLS/HR; Start 02/10/17 at 11:30 Metoprolol Tartrate (Lopressor) 25 mg BID PO Last administered on 02/11/17 20: 47; Admin Dose 25 MG; Start 02/10/17 at 23:30 Insulin Glargine (Lantus) 10 unit DAILY@20 SC Last administered on 02/11/17 20: 48; Admin Dose 10 UNIT; Start 02/11/17 at 20:00 Diagnostic Test (Pha) (Accu-Chek) 1 ea 02 XX ; Start 02/11/17 at 02:00 Miscellaneous Information 1 ea NOTE XX ; Start 02/10/17 at 23:45 Glucose (Glutose) 15 gm Q15M PRN PO DECREASED GLUCOSE; Start 02/10/17 at 23:45 Glucose (Glutose) 22.5 gm Q15M PRN PO DECREASED GLUCOSE; Start 02/10/17 at 23:45 Dextrose (D50w Syringe) 25 ml Q15M PRN IV DECREASED GLUCOSE; Start 02/10/17 at 23:45 Dextrose (D50w Syringe) 50 ml Q15M PRN IV DECREASED GLUCOSE; Start 02/10/17 at 23:45 Glucagon (Glucagen) 1 mg Q15M PRN IM DECREASED GLUCOSE; Start 02/10/17 at 23:45 Glucose (Glutose) 15 gm Q15M PRN BUCCAL DECREASED GLUCOSE; Start 02/10/17 at 23: 45 Clopidogrel Bisulfate (plaVIX) 75 mg DAILY PO ; Start 02/12/17 at 09:00 Famotidine (Pepcid) 20 mg DAILY PO Last administered on 02/11/17 18:02; Admin Dose 20 MG; Start 02/11/17 at 18:00 MANJIT CHAMORRO NP Feb 12, 2017 09:36
[2017-02-12] MEDS ORDERED: POTASSIUM CHLORIDE (SR) 20 MEQ TAB PO STA (09:46)
[2017-02-12] MEDS: FAMOTIDINE 20 MG TAB PO SCH (09:57)
[2017-02-12] MEDS: CLOPIDOGREL 75 MG TAB PO SCH (09:57)
[2017-02-12] MEDS: METOPROLOL 25 MG TAB PO SCH ×2 (09:57→20:43)
[2017-02-12] MEDS ORDERED: POTASSIUM CHLORIDE (SR) 10 MEQ TAB PO ONE (10:00)
[2017-02-12] MEDS ORDERED: FUROSEMIDE 20 MG INJ IV ONE (10:00)
[2017-02-12] MEDS: HEPARIN 5,000 UNIT/0.5 ML VIAL SC SCH ×2 (10:52→20:51)
--- NOTE | 2017-02-12 16:49 | PN ---
DATE: 02/12/2017 CARDIOLOGY FOLLOWUP SUBJECTIVE: The case discussed with the staff. Rhythm strip was reviewed. There is demand ventric ular pacemaker. No chest pain or pressure, is feeling better. MEDICATIONS: Reviewed. PHYSICAL EXAMINATION: VITAL SIGNS: Temperature 98.3, heart rate of 81, blood pressure 160/80, respirations 18, saturating 100%. HEENT: Normocephalic, atraumatic. Pupils are equal and round. CARDIOVASCULAR: Regular rate and rhythm. PULMONARY: With no wheezes heard. GASTROINTESTINAL: Soft, nontender. EXTREMITIES: With no significant lower extremity edema. NEUROLOGIC: Awake, responds. PSYCHIATRIC: Appeared to be calm and pleasant. LABORATORY: WBC of 5.3, hemoglobin 10.7, platelets 237. Sodium 137, potassium 3.4, BUN of 9, creat inine 0.59, glucose of 89. ASSESSMENT AND PLAN: 1. Possible transient ischemic attack/cerebrovascular accident. 2. Atrial fibrillation, flutter. 3. Sick sinus syndrome, permanent pacemaker. 4. Diabetes. 5. Hypertension. 6. Dyslipidemia. RECOMMENDATIONS: We will continue with the current cardiac care. We will allow for permissive hype rtension for now. Resume his anticoagulant once okay from neurology standpoint. The pacemaker was interrogated and personally reviewed. Normal function. The patient's pacemaker is a [employer] pacem esteban which is not approved for the MRI yet. However, MRI can be done as an outpatient as an experim ental procedure. Patient to follow up with his hairspring adjuster as an outpatient and to schedule possib ility of MRI if it is felt to be needed. Dictated By: MALCOLM GONZALES MD AV/JEOVANNY Conf#: [id number] DID#: [id number] CC: MANJIT CHAMORRO GENERAL OFFICE ASSISTANT;*EndCC*
[2017-02-12] MEDS: INSULIN GLARGINE [LANtus] 3 ML PEN SC SCH (20:00)
[2017-02-12] MEDS: ATORVASTATIN 20 MG TAB PO SCH (20:43)
[2017-02-13] VITALS (13 sets, daily range): BP systolic 138–168; BP diastolic 74–84; PULSE 79–90; RESP 17–20
[2017-02-13] MEDS: ACCU-CHEK XX SCH (02:00)
[2017-02-13] MEDS: SOD CHLORIDE 0.9% 1,000 ML IV SCH ×2 (05:31→20:00)
[2017-02-13 07:19] LABS: ADD SCAN DIFF NO
[2017-02-13 07:24] LABS: BASOPHILS % 0.3 % (0.0-2.0); EOSINOPHILS % 0.8 % (0.0-7.0); HEMATOCRIT 33.7 % (37.0-47.0); HEMOGLOBIN 11.5 g/dl (12.0-16.0); LYMPHOCYTES # 0.7 10^3/ul (0.8-2.9); LYMPHOCYTES % 18.1 % (15.0-51.0); MEAN CORPUSCULAR HEMOGLOBIN 31.7 pg (29.0-33.0); MEAN CORPUSCULAR HGB CONC 34.1 g/dl (32.0-37.0); MEAN CORPUSCULAR VOLUME 92.8 fl (82.0-101.0); MEAN PLATELET VOLUME 9.1 fl (7.4-10.4); MONOCYTE # 0.5 10^3/ul (0.3-0.9); MONOCYTES % 13.5 % (0.0-11.0); NEUTROPHIL # 2.6 10^3/ul (1.6-7.5); PLATELET COUNT 263 10^3/UL (140-415); RED BLOOD COUNT 3.63 10^6/ul (4.20-5.40); RED CELL DISTRIBUTION WIDTH 12.6 % (11.5-14.5); WHITE BLOOD COUNT 3.9 10^3/ul (4.8-10.8)
[2017-02-13 07:35] LABS: POTASSIUM 3.6 mmol/L (3.5-5.1)
[2017-02-13 07:37] LABS: CREATININE 0.53 mg/dl (0.44-1.00)
[2017-02-13 07:38] LABS: CALCIUM 8.3 mg/dl (8.4-10.2)
[2017-02-13] MEDS: INSULIN ASPART [NOVOLOG] 3 ML PEN SC SCH ×4 (07:55→21:08)
[2017-02-13] MEDS: CLOPIDOGREL 75 MG TAB PO SCH (08:51)
[2017-02-13] MEDS: METOPROLOL 25 MG TAB PO SCH ×2 (08:52→21:03)
[2017-02-13] MEDS: FAMOTIDINE 20 MG TAB PO SCH (08:52)
[2017-02-13] MEDS: HEPARIN 5,000 UNIT/0.5 ML VIAL SC SCH ×2 (08:56→21:07)
--- NOTE | 2017-02-13 12:26 | CONS ---
Date/Time of Note Date/Time of Note DATE: 02/13/17 TIME: 12:19 Consult Date/Type/Reason Admit Date/Time Feb 10, 2017 at 04:17 Initial Consult Date 02/10/17 Type of Consultation: Neurology Reason for Consultation follow up for CVA Subjective continues to have some speech hesitation and expressive aphasia unable to obtain MRI due to PPM plan for repeat Head CT Objective Vital Signs Date Time Temp Pulse Resp B/P Pulse Ox O2 Delivery O2 Flow Rate FiO2 02/13/17 12:04 79 02/13/17 11:52 98.1 20 157/81 93 02/12/17 08:05 Nasal Cannula 2.0 Intake and Output 02/12/17 02/12/17 02/13/17 15:00 23:00 07:00 Intake Total 900 ml 400 ml Output Total 2500 ml Balance -1600 ml 400 ml Exam awake and alert appears comfortable oriented to self, hospital follows simple commands slow to respond at times can repeat with some difficulty can name expressive aphasia present CN II-XII grossly intact Motor: no drift in extremities Coordination no ataxia Gait can stand without assist slow gait Results/Medications Result Diagram: 02/13/17 0647 02/13/17 0647 Results 24 hrs Laboratory Tests Test 02/12/17 18:03 02/12/17 20:42 02/13/17 06:47 02/13/17 08:47 Bedside Glucose 88 153 111 White Blood Count 3.9 #L Red Blood Count 3.63 L Hemoglobin 11.5 L Hematocrit 33.7 L Mean Corpuscular Volume 92.8 Mean Corpuscular Hemoglobin 31.7 Mean Corpuscular Hemoglobin Concent 34.1 Red Cell Distribution Width 12.6 Platelet Count 263 Mean Platelet Volume 9.1 Neutrophils % 67.0 Lymphocytes % 18.1 Monocytes % 13.5 H Eosinophils % 0.8 Basophils % 0.3 Nucleated Red Blood Cells % 0.0 Neutrophils # 2.6 Lymphocytes # 0.7 L Monocytes # 0.5 Eosinophils # 0.0 Basophils # 0.0 Nucleated Red Blood Cells # 0.0 Sodium Level 134 L Potassium Level 3.6 Chloride Level 102 Carbon Dioxide Level 24 Anion Gap 12 Blood Urea Nitrogen 8 Creatinine 0.53 Glucose Level 105 Calcium Level 8.3 L Magnesium Level 1.9 Medications Current Medications Ondansetron HCl (Zofran Inj) 4 mg Q6H PRN IV NAUSEA AND/OR VOMITING; Start 4/2 /17 at 08:30 Aspirin (Aspirin) 81 mg DAILY PO ; Start 02/11/17 at 09:00; Status Future Hold Acetaminophen (Tylenol Tab) 650 mg Q6H PRN PO PAIN LEVEL 1-3 OR FEVER; Start at 08:30 Morphine Sulfate (morphine) 2 mg Q4H PRN IV PAIN LEVEL 7-10; Start 02/10/17 at 08:30 Heparin Sodium (Porcine) (Heparin (5000 Units/0.5 ml)) 5,000 unit Q12 SC Last administered on 02/13/17 08:56; Admin Dose 5,000 UNIT; Start 02/10/17 at 09:00 Atorvastatin Calcium 20 mg 20 mg QHS PO Last administered on 02/12/17 20:43; Admin Dose 20 MG; Start 02/10/17 at 21:00 Sodium Chloride (NS) 1,000 ml @ 75 mls/hr [id number] IV Last administered on 05:31; Admin Dose 75 MLS/HR; Start 02/10/17 at 11:30 Metoprolol Tartrate (Lopressor) 25 mg BID PO Last administered on 02/13/17 08: 52; Admin Dose 25 MG; Start 02/10/17 at 23:30 Insulin Glargine (Lantus) 10 unit DAILY@20 SC Last administered on 02/11/17 20: 48; Admin Dose 10 UNIT; Start 02/11/17 at 20:00 Diagnostic Test (Pha) (Accu-Chek) 1 ea 02 XX ; Start 02/11/17 at 02:00 Miscellaneous Information 1 ea NOTE XX ; Start 02/10/17 at 23:45 Glucose (Glutose) 15 gm Q15M PRN PO DECREASED GLUCOSE; Start 02/10/17 at 23:45 Glucose (Glutose) 22.5 gm Q15M PRN PO DECREASED GLUCOSE; Start 02/10/17 at 23:45 Dextrose (D50w Syringe) 25 ml Q15M PRN IV DECREASED GLUCOSE; Start 02/10/17 at 23:45 Dextrose (D50w Syringe) 50 ml Q15M PRN IV DECREASED GLUCOSE; Start 02/10/17 at 23:45 Glucagon (Glucagen) 1 mg Q15M PRN IM DECREASED GLUCOSE; Start 02/10/17 at 23:45 Glucose (Glutose) 15 gm Q15M PRN BUCCAL DECREASED GLUCOSE; Start 02/10/17 at 23: 45 Clopidogrel Bisulfate (plaVIX) 75 mg DAILY PO Last administered on 02/13/17 08: 51; Admin Dose 75 MG; Start 02/12/17 at 09:00 Famotidine (Pepcid) 20 mg DAILY PO Last administered on 02/13/17 08:52; Admin Dose 20 MG; Start 02/11/17 at 18:00 Assessment/Plan Chief Complaint/Hosp Course 86 year old female with hx of sick sinus syndrome with PPM, aflutter, hypertension, diabetes, HLD p/w sudden onset aphasia and dysphagia. -unable to obtain MRI Brain due to PPM will repeat Head CT today for now she is on ASA and Plavix would prefer to switch to anticoagulation and stop aspirin and plavix, will discuss first with rattling machine tender -may aim for SBP<140/90 -continue current dose statin and insulin dosing to maintain euglycemia -DVT ppx -PT/OT/Speech follow up Problems: KARLY ABAD MD Feb 13, 2017 12:26
--- NOTE | 2017-02-13 13:34 | PN ---
Date/Time of Note Date/Time of Note DATE: 02/13/17 TIME: 13:31 Assessment/Plan VTE Prophylaxis VTE Prophylaxis Intervention: LMWH Lines/Catheters IV [facility] Type [facility] Peripheral IV Urinary Cath still in place: No Assessment/Plan Chief Complaint/Hosp Course 1. Possible underlying acute stroke versus TIA. Seen and evaluated by neurology. A brain CT scan negative for any acute findings. Unable to do brain MRI because of the pacemaker. Continue Plavix. The patient will be continued on statins. Carotid Doppler study negative for any hemodynamically significant stenosis. 2. Atrial flutter. Chronic. The patient was on factor Xa inhibitors at home. This will be resumed once cleared by neurology. 3. Coronary artery disease. 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 Continue Plavix. Continue beta blockers. 4. Type 2 diabetes mellitus. Hemoglobin A1c 6.6. The patient currently on sliding scale insulin. 6. Dyslipidemia. Continue statins. 7. Hyperdynamic left ventricular systolic function. Continue to monitor. Cardiology following. 8. Pulmonary hypertension. RVSP of 51 mm Hg as per 2D echocardiogram. Continue supplemental oxygen. 9. Fluid, electrolytes and nutrition. Carbohydrate controlled, low cholesterol diet. 10. Deep venous thrombosis prophylaxis with subcutaneous heparin. 11. Gastrointestinal prophylaxis. Histamine 2 receptor blockers. PLAN: 1. Continue inpatient care. 2. Repeat CT scan of the brain ordered. Discussed the plan of care with neurology. The case was discussed with Dr. Wolf. Problems: Subjective 24 Hr Interval Summary Free Text/Dictation Denies any dyspnea. Exam/Review of Systems Vital Signs Vitals Vital Signs Date Time Temp Pulse Resp B/P Pulse Ox O2 Delivery O2 Flow Rate FiO2 02/13/17 12:04 79 02/13/17 11:52 98.1 20 157/81 93 02/12/17 08:05 Nasal Cannula 2.0 Intake and Output 02/12/17 02/12/17 02/13/17 14:59 22:59 06:59 Intake Total 900 ml 400 ml Output Total 2500 ml Balance -1600 ml 400 ml Exam GENERAL: This is an adequately built Wallisian female lying in bed in no apparent distress. HEENT: Head normocephalic and atraumatic. Eyes: Anicteric sclerae. Conjunctivae clear. ENT: Nasal septum is midline. Oral mucosa is moist. NECK: Supple. No JVD noticed. RESPIRATORY: Bilaterally diminished breath sounds. No use of accessory muscles of respiration. CARDIAC: Irregularly irregular rhythm. Median sternotomy scar. ABDOMEN: Soft, nontender and nondistended. Bowel sounds positive in all 4 quadrants. GENITOURINARY: Deferred. EXTREMITIES: No cyanosis, no clubbing, no edema. Peripheral pulses are palpable. NEUROLOGIC: The patient is awake, alert and oriented. Moves all 4 extremities. Expressive aphasia. SKIN: Normal skin turgor. Results Result Diagram: 02/13/17 0647 02/13/17 0647 Results 24 hrs Laboratory Tests Test 02/12/17 18:03 02/12/17 20:42 02/13/17 06:47 02/13/17 08:47 Bedside Glucose 88 153 111 White Blood Count 3.9 #L Red Blood Count 3.63 L Hemoglobin 11.5 L Hematocrit 33.7 L Mean Corpuscular Volume 92.8 Mean Corpuscular Hemoglobin 31.7 Mean Corpuscular Hemoglobin Concent 34.1 Red Cell Distribution Width 12.6 Platelet Count 263 Mean Platelet Volume 9.1 Neutrophils % 67.0 Lymphocytes % 18.1 Monocytes % 13.5 H Eosinophils % 0.8 Basophils % 0.3 Nucleated Red Blood Cells % 0.0 Neutrophils # 2.6 Lymphocytes # 0.7 L Monocytes # 0.5 Eosinophils # 0.0 Basophils # 0.0 Nucleated Red Blood Cells # 0.0 Sodium Level 134 L Potassium Level 3.6 Chloride Level 102 Carbon Dioxide Level 24 Anion Gap 12 Blood Urea Nitrogen 8 Creatinine 0.53 Glucose Level 105 Calcium Level 8.3 L Magnesium Level 1.9 Test 02/13/17 12:26 Bedside Glucose 124 Medications Medications Current Medications Ondansetron HCl (Zofran Inj) 4 mg Q6H PRN IV NAUSEA AND/OR VOMITING; Start 02/10 at 08:30 Aspirin (Aspirin) 81 mg DAILY PO ; Start 02/11/17 at 09:00; Status Future Hold Acetaminophen (Tylenol Tab) 650 mg Q6H PRN PO PAIN LEVEL 1-3 OR FEVER; Start at 08:30 Morphine Sulfate (morphine) 2 mg Q4H PRN IV PAIN LEVEL 7-10; Start 02/10/17 at 08:30 Heparin Sodium (Porcine) (Heparin (5000 Units/0.5 ml)) 5,000 unit Q12 SC Last administered on 02/13/17 08:56; Admin Dose 5,000 UNIT; Start 02/10/17 at 09:00 Atorvastatin Calcium 20 mg 20 mg QHS PO Last administered on 02/12/17 20:43; Admin Dose 20 MG; Start 02/10/17 at 21:00 Sodium Chloride (NS) 1,000 ml @ 75 mls/hr [id number] IV Last administered on 05:31; Admin Dose 75 MLS/HR; Start 02/10/17 at 11:30 Metoprolol Tartrate (Lopressor) 25 mg BID PO Last administered on 02/13/17 08: 52; Admin Dose 25 MG; Start 02/10/17 at 23:30 Insulin Glargine (Lantus) 10 unit DAILY@20 SC Last administered on 02/11/17 20: 48; Admin Dose 10 UNIT; Start 02/11/17 at 20:00 Diagnostic Test (Pha) (Accu-Chek) 1 ea 02 XX ; Start 02/11/17 at 02:00 Miscellaneous Information 1 ea NOTE XX ; Start 02/10/17 at 23:45 Glucose (Glutose) 15 gm Q15M PRN PO DECREASED GLUCOSE; Start 02/10/17 at 23:45 Glucose (Glutose) 22.5 gm Q15M PRN PO DECREASED GLUCOSE; Start 02/10/17 at 23:45 Dextrose (D50w Syringe) 25 ml Q15M PRN IV DECREASED GLUCOSE; Start 02/10/17 at 23:45 Dextrose (D50w Syringe) 50 ml Q15M PRN IV DECREASED GLUCOSE; Start 02/10/17 at 23:45 Glucagon (Glucagen) 1 mg Q15M PRN IM DECREASED GLUCOSE; Start 02/10/17 at 23:45 Glucose (Glutose) 15 gm Q15M PRN BUCCAL DECREASED GLUCOSE; Start 02/10/17 at 23: 45 Clopidogrel Bisulfate (plaVIX) 75 mg DAILY PO Last administered on 02/13/17 08: 51; Admin Dose 75 MG; Start 02/12/17 at 09:00 Famotidine (Pepcid) 20 mg DAILY PO Last administered on 02/13/17 08:52; Admin Dose 20 MG; Start 02/11/17 at 18:00 MANJIT CHAMORRO NP Feb 13, 2017 13:34
--- NOTE | 2017-02-13 14:43 | RADRPT ---
PROCEDURE: CT Brain without contrast. CLINICAL INDICATION: Neurologic deficit TECHNIQUE: A CT of the brain was performed on multidetector high-resolution CT scanner utilizing a xial sections from the skull base through the vertex without contrast. One or more of the following dose reduction techniques were used: Automated exposure control, Adjustment of the mA and/or kV acc ording to patient size, and/or use of iterative reconstruction technique. DOSE: CTDI = 45 mGy and the DLP = 720 mGy-cm. COMPARISON: Head CT 02/10/2017 FINDINGS: Interval cortical hypoattenuation of the left inferior frontal lobe, frontal operculum and left insu la. No acute hemorrhage or midline shift. Patchy hypoattenuation of the cerebral white matter is co mpatible with chronic microvascular ischemic changes. Vascular calcifications. Prominence of the cor tical sulci and ventricles are related to mild cerebral volume loss. No significant opacification of the visualized paranasal sinuses or mastoids. Irregularity of the bilateral parietal skull is unc hanged from prior. IMPRESSION: Interval cortical hypoattenuation of the left inferior frontal lobe, frontal operculum and left insu la is compatible with a recent, subacute left MCA territory infarct. No acute intracranial hemorrhage or midline shift. Mild chronic microvascular disease and intracranial atherosclerosis. A call report was made to LOUANN RAMIREZ at 02/13/2017 2:41:41 PM. RPTAT: AA .Ricci Childers MD, MD Date Time Electronically viewed and signed by .Ricci Childers MD, MD on 02/13/2017 14:43 .T/
[2017-02-13] MEDS ORDERED: hydrALAzine 20 MG INJ IV PRN (16:00)
[2017-02-13] MEDS: AMOXICILLIN 500 MG CAP PO SCH ×2 (17:01→23:41)
[2017-02-13] MEDS: ATORVASTATIN 20 MG TAB PO SCH (21:03)
[2017-02-13] MEDS: INSULIN GLARGINE [LANtus] 3 ML PEN SC SCH (21:07)
[2017-02-14] VITALS (10 sets, daily range): BP systolic 154–166; BP diastolic 81–90; PULSE 79–86; RESP 16–18
[2017-02-14] MEDS: ACCU-CHEK XX SCH (03:00)
[2017-02-14] MEDS: AMOXICILLIN 500 MG CAP PO SCH ×2 (06:06→14:15)
[2017-02-14] MEDS: SOD CHLORIDE 0.9% 1,000 ML IV SCH (06:07)
[2017-02-14] MEDS: INSULIN ASPART [NOVOLOG] 3 ML PEN SC SCH ×3 (07:55→17:29)
[2017-02-14 08:14] LABS: ADD SCAN DIFF NO
[2017-02-14 08:19] LABS: BASOPHILS % 0.6 % (0.0-2.0); EOSINOPHILS % 0.9 % (0.0-7.0); HEMATOCRIT 34.2 % (37.0-47.0); HEMOGLOBIN 11.4 g/dl (12.0-16.0); LYMPHOCYTES # 0.8 10^3/ul (0.8-2.9); LYMPHOCYTES % 22.8 % (15.0-51.0); MEAN CORPUSCULAR HEMOGLOBIN 30.9 pg (29.0-33.0); MEAN CORPUSCULAR HGB CONC 33.3 g/dl (32.0-37.0); MEAN CORPUSCULAR VOLUME 92.7 fl (82.0-101.0); MEAN PLATELET VOLUME 9.4 fl (7.4-10.4); MONOCYTE # 0.4 10^3/ul (0.3-0.9); MONOCYTES % 11.4 % (0.0-11.0); NEUTROPHIL # 2.3 10^3/ul (1.6-7.5); PLATELET COUNT 293 10^3/UL (140-415); RED BLOOD COUNT 3.69 10^6/ul (4.20-5.40); RED CELL DISTRIBUTION WIDTH 12.5 % (11.5-14.5); WHITE BLOOD COUNT 3.5 10^3/ul (4.8-10.8)
[2017-02-14] MEDS: FAMOTIDINE 20 MG TAB PO SCH (08:21)
[2017-02-14] MEDS: METOPROLOL 25 MG TAB PO SCH (08:21)
[2017-02-14] MEDS: HEPARIN 5,000 UNIT/0.5 ML VIAL SC SCH (08:25)
--- NOTE | 2017-02-14 08:30 | PN ---
DATE: CARDIOLOGY FOLLOWUP SUBJECTIVE: Discussed with the staff. Rhythm strip was reviewed. The patient remained in atrial fibrillation and flutter. On demand ventricular pacemaker. Denies any chest pain or pressure, is f eeling better. No bleeding. MEDICATIONS: Reviewed. PHYSICAL EXAMINATION: VITAL SIGNS: Temperature 97.5, heart rate of 87, blood pressure 149/84, respiration rate of 20, sat urating 98%. HEENT: Normocephalic, atraumatic. Pupils are equal. CARDIOVASCULAR: Irregularly irregular. PULMONARY: With no wheezes or rhonchi. GASTROINTESTINAL: Soft, nontender. EXTREMITIES: No significant lower extremity edema. NEUROLOGIC: Awake and alert, responds appropriately. PSYCHIATRIC: Appears to be calm and pleasant. There have been no active bleeding signs. LABORATORY: WBC of 3.9, hemoglobin 11.5, platelets of 263. Sodium 134, potassium 3.6, BUN of 8, cr eatinine 0.53, glucose 105. Magnesium 1.9. ASSESSMENT AND PLAN: 1. Possible transient ischemic attack, cerebrovascular accident. 2. Atrial fibrillation and flutter. 3. Sick sinus syndrome, status post permanent pacemaker with a [employer] pacemaker. 4. Diabetes. 5. Hypertension. 6. Dyslipidemia. RECOMMENDATIONS: We will continue with the current cardiac care. Recommend resuming off the antico agulant as soon as the clearance is given by neurology. Discharge planning once okay from neurology standpoint. Dictated By: MALCOLM GONZALES MD AV/JEOVANNY Conf#: [id number] DID#: [id number] CC: MANJIT CHAMORRO SPECIAL ASSETS OFFICER;*End*
[2017-02-14 08:34] LABS: CALCIUM 8.3 mg/dl (8.4-10.2); CREATININE 0.52 mg/dl (0.44-1.00); POTASSIUM 3.6 mmol/L (3.5-5.1)
--- NOTE | 2017-02-14 08:59 | PN ---
DATE: 02/14/2017 CARDIOLOGY FOLLOWUP SUBJECTIVE: Discussed with the staff. Rhythm strip was reviewed. Discussed with Dr. Abad. Her input is appreciated. The patient with no chest pain or pressure, is feeling better. No palp itation. No bleeding. MEDICATIONS: Reviewed. PHYSICAL EXAMINATION: VITAL SIGNS: Temperature 98.1, heart rate of 80, blood pressure 154/86, respiratory rate of 18, sat urating 98%. HEENT: Normocephalic, atraumatic. Pupils are equal. CARDIOVASCULAR: Irregularly irregular. Systolic murmur. PULMONARY: With no wheezes heard. GASTROINTESTINAL: Soft, nontender. EXTREMITIES: With trivial lower extremity edema. NEUROLOGIC: Awake, responds appropriately. PSYCHIATRIC: Appears to be calm and pleasant. LABORATORY: Glucose 134. CT scan of the head was repeated yesterday, which shows interval cortical hypoattenuation of the left inferior frontal lobe of left insula, compatible with recent sub acute left MCA territory infarct. ASSESSMENT AND PLAN: 1. Acute cerebrovascular accident. 2. Atrial fibrillation and flutter. 3. Sick sinus syndrome, permanent pacemaker. 4. Hypertension. 5. Diabetes. RECOMMENDATIONS: Antiplatelet/anticoagulant as per neurology recommendations. Discussed with neuro logy. She is recommending to neurology. Patient remains on aspirin now. Anticoagulation to be held for another week, given her extensive stroke. Will continue with the current cardiac care. Permissive hypertension will be allowed as well and slowly we will increase the blood pressure medi cation. Statins will be continued as well. Dictated By: MALCOLM GONZALES MD AV/NTS Conf#: [id number] DID#: [id number] CC: MANJIT CHAMORRO NP; KARLY ABAD MD;*End*
--- NOTE | 2017-02-14 11:25 | CONS ---
Date/Time of Note Date/Time of Note DATE: 02/14/17 TIME: 11:22 Consult Date/Type/Reason Admit Date/Time Feb 10, 2017 at 04:17 Initial Consult Date 02/10/17 Type of Consultation: Neurology Reason for Consultation left MCA stroke Subjective expressive aphasia no other events CTH showed left frontal operculum, left insular MCA territory moderately sized sub-acute infarct Objective Vital Signs Date Time Temp Pulse Resp B/P Pulse Ox O2 Delivery O2 Flow Rate FiO2 02/14/17 08:12 79 02/14/17 07:58 Nasal Cannula 2.0 02/14/17 07:18 98.1 18 154/86 98 Intake and Output 02/13/17 02/13/17 02/14/17 15:00 23:00 07:00 Intake Total 1090 ml Balance 1090 ml Exam awake and alert appears comfortable oriented to self, hospital follows simple commands slow to respond at times can repeat with some difficulty can name expressive aphasia present CN II-XII grossly intact Motor: no drift in extremities Coordination no ataxia Gait can stand without assist slow gait Results/Medications Result Diagram: 02/14/17 0707 02/14/17 0707 Results 24 hrs Laboratory Tests Test 02/13/17 12:26 02/13/17 17:45 02/13/17 20:58 02/14/17 03:33 Bedside Glucose 124 150 229 H 94 Test 02/14/17 07:07 02/14/17 07:55 White Blood Count 3.5 L Red Blood Count 3.69 L Hemoglobin 11.4 L Hematocrit 34.2 L Mean Corpuscular Volume 92.7 Mean Corpuscular Hemoglobin 30.9 Mean Corpuscular Hemoglobin Concent 33.3 Red Cell Distribution Width 12.5 Platelet Count 293 Mean Platelet Volume 9.4 Neutrophils % 64.0 Lymphocytes % 22.8 Monocytes % 11.4 H Eosinophils % 0.9 Basophils % 0.6 Nucleated Red Blood Cells % 0.0 Neutrophils # 2.3 Lymphocytes # 0.8 Monocytes # 0.4 Eosinophils # 0.0 Basophils # 0.0 Nucleated Red Blood Cells # 0.0 Sodium Level 135 Potassium Level 3.6 Chloride Level 104 Carbon Dioxide Level 25 Anion Gap 10 Blood Urea Nitrogen 7 Creatinine 0.52 Glucose Level 133 Calcium Level 8.3 L Magnesium Level 1.8 Bedside Glucose 134 Medications Current Medications Ondansetron HCl (Zofran Inj) 4 mg Q6H PRN IV NAUSEA AND/OR VOMITING; Start 02/10 at 08:30 Aspirin (Aspirin) 81 mg DAILY PO ; Start 02/11/17 at 09:00; Status Future hold Acetaminophen (Tylenol Tab) 650 mg Q6H PRN PO PAIN LEVEL 1-3 OR FEVER; Start at 08:30 Morphine Sulfate (morphine) 2 mg Q4H PRN IV PAIN LEVEL 7-10; Start 02/10/17 at 08:30 Heparin Sodium (Porcine) (Heparin (5000 Units/0.5 ml)) 5,000 unit Q12 SC Last administered on 02/14/17 08:25; Admin Dose 5,000 UNIT; Start 02/10/17 at 09:00 Atorvastatin Calcium 20 mg 20 mg QHS PO Last administered on 02/13/17 21:03; Admin Dose 20 MG; Start 02/10/17 at 21:00 Sodium Chloride (NS) 1,000 ml @ 75 mls/hr [id number] IV Last administered on 06:07; Admin Dose 75 MLS/HR; Start 02/10/17 at 11:30 Metoprolol Tartrate (Lopressor) 25 mg BID PO Last administered on 02/14/17 08: 21; Admin Dose 25 MG; Start 02/10/17 at 23:30 Insulin Glargine (Lantus) 10 unit DAILY@20 SC Last administered on 02/13/17 21: 07; Admin Dose 10 UNIT; Start 02/11/17 at 20:00 Diagnostic Test (Pha) (Accu-Chek) 1 ea 02 XX ; Start 02/11/17 at 02:00 Miscellaneous Information 1 ea NOTE XX ; Start 02/10/17 at 23:45 Glucose (Glutose) 15 gm Q15M PRN PO DECREASED GLUCOSE; Start 02/10/17 at 23:45 Glucose (Glutose) 22.5 gm Q15M PRN PO DECREASED GLUCOSE; Start 02/10/17 at 23:45 Dextrose (D50w Syringe) 25 ml Q15M PRN IV DECREASED GLUCOSE; Start 02/10/17 at 23:45 Dextrose (D50w Syringe) 50 ml Q15M PRN IV DECREASED GLUCOSE; Start 02/10/17 at 23:45 Glucagon (Glucagen) 1 mg Q15M PRN IM DECREASED GLUCOSE; Start 02/10/17 at 23:45 Glucose (Glutose) 15 gm Q15M PRN BUCCAL DECREASED GLUCOSE; Start 02/10/17 at 23: 45 Famotidine (Pepcid) 20 mg DAILY PO Last administered on 02/14/17 08:21; Admin Dose 20 MG; Start 02/11/17 at 18:00 Amoxicillin (Amoxicillin) 500 mg Q8 PO Last administered on 02/14/17 06:06; Admin Dose 500 MG; Start 02/13/17 at 16:00 Hydralazine HCl (Apresoline) 10 mg Q6H PRN IV SBP>160; Start 02/13/17 at 16:00 Assessment/Plan Chief Complaint/Hosp Course 86 year old female with hx of sick sinus syndrome with PPM, aflutter, hypertension, diabetes, HLD p/w sudden onset aphasia and dysphagia. MRI unable to complete due to PPM. Head CT shows sub-acute Left MCA moderately sized CVA. Recommendations: -ASA 81 mg for 1 week in one week from presentation which is (02/17) should stop aspirin and begin Xarelto 20 mg evening -may aim for SBP<140/90 -continue current dose statin and insulin dosing to maintain euglycemia -DVT ppx -PT/OT/Speech follow up dc planning, should follow up with Dr. Coe for neurology follow up Problems: KARLY ABAD MD Feb 14, 2017 11:25
--- NOTE | 2017-02-14 12:09 | PDOCDIS ---
Discharge Instructions DIAGNOSIS Discharge Diagnosis: Acute ischemic stroke. CONDITION Patient Condition: Stable HOME CARE INSTRUCTIONS: Special Diet: Low Chol, Low fat, carbohydrate controlled FOLLOW UP/APPOINTMENTS Appointments Krissy Coe MD Specialty: Neurology Comments: Office Address: [address] [place] [address] [place] [id number] Office OTHER ORDERS: Other Orders: 1. Take a low-cholesterol, carbohydrate controlled diet. 2. Activities as tolerated. Fall precautions. 3. Take medications as per prescription. Resume taking Xarelto after the seven -day dose of aspirin is finished (from 02/22/2017). 4. Follow-up with neurology (Dr. Coe) in 2 weeks. Please call for appointment. 5. Follow-up with your truck crane operator as scheduled. 6. Call 911 or go to the nearest emergency room if you have any chest pain, sudden onset of focal weakness, or any speech disturbances. MANJIT CHAMORRO NP Feb 14, 2017 12:09
[2017-02-14] MEDS ORDERED: METF500T4 PO (12:15)
[2017-02-14] MEDS ORDERED: AMO500 PO (12:15)
[2017-02-14] MEDS ORDERED: ASPI81TA3 PO (12:15)
[2017-02-14] MEDS ORDERED: ATOR20TA65 PO (12:15)
[2017-02-14] MEDS ORDERED: metFORMIN 500 MG TAB PO SCH (17:55)
--- NOTE | 2017-02-14 18:57 | DS ---
DATE OF ADMISSION: 02/10/2017 DATE OF DISCHARGE: 02/14/2017 FINAL DIAGNOSES: 1. Left insular middle cerebral artery territory moderately sized subacute infarct. 2. Acute encephalopathy secondary to acute stroke, resolved. 3. Atrial flutter. Rate controlled. 4. Coronary artery disease status post coronary artery bypass graft in the past. 5. Urinary tract infection. 6. Type 2 diabetes mellitus. Hemoglobin A1c 6.6. 7. Dyslipidemia. 8. Hyperdynamic left ventricular systolic function. 9. Pulmonary hypertension. 10. Normocytic, normochromic anemia. 11. Dyslipidemia. 12. Essential hypertension. CONSULTANTS: 1. Dr. Federico Kunz, neurology. 2. Dr. Galdino Mojica, cardiology. 3. Dr. Katelynn Roper, neurology. HOSPITAL COURSE: This is an 86-year-old female with multiple comorbidities including CAD, essential hypertension, and diabetes, who was brought in by EMS from home because of 3 hours of aphasia. There was no reported focal weakness, no nausea , vomiting, seizure activity, facial asymmetry, drooling or difficulty swallowing. The patient denied any cephalgia. In the emergency room, a CT scan of the brain was done that was negative for any acute intracranial findings. The patient's lab work was significant for hyponatremia with a sodium of 127. The patient's initial troponins were negative. Provided the patient's history of present illness, her comorbidities and the diagnostic findings, a clinical decision was made to admit the patient to inpatient setting to have her further evaluated. The patient was admitted to inpatient telemetry floor. A neurology consult was called on this patient. Further workup was done to evaluate for any underlying stroke. The patient's carotid Doppler study was negative for any hemodynamically significant stenosis. The patient's 2D echocardiogram showed hyperdynamic left ventricular systolic function and no evidence of any wall motion abnormalities. Brain MRI could not be ordered because the patient has an underlying permanent pacemaker. The patient was on factor Xa inhibitors at home for anticoagulation because of chronic atrial flutter/fibrillation. This was put on hold. Cardiology consult was obtained. The patient's serial troponins remained negative. The patient's pacemaker was interrogated by the curing machine operator. Unfortunately, the patient could not go through MRI because of underlying pacemaker for further evaluation of her acute aphasia. The patient was also having periods of confusion upon presentation that resolved throughout the patient's hospital course. However, as per the recommendation of neurology , the patient underwent a repeat CT scan of the brain on 02/13/2017 that showed interval cortical hypoattenuation of the left inferior frontal lobe, frontal operculum and left insula, compatible with a recent subacute left MCA territory infarct with no acute intracranial hemorrhage or midline shift. Consequently, the neurologist wanted to start the patient on aspirin for 7 days, to be followed by factor Xa inhibitors. As mentioned earlier, the patient has underlying atrial fibrillation/flutter. The patient's heart rate remained controlled. The patient has underlying essential hypertension. The patient's antihypertensives were adjusted to obtain optimal blood pressure control. However, permissive hypertension was provided during the first 24 hours after patient's hospitalization. The patient 's 2D echocardiogram showed hyperdynamic left ventricular systolic function and evidence of pulmonary hypertension as evidenced by the right ventricular systolic pressure of 51 mmHg. The patient's 2D echocardiogram also showed trace pulmonic regurgitation as well as mild to moderate mitral valve regurgitation. The patient has underlying diabetes mellitus. The patient's hemoglobin A1c was found to be 6.6. The patient was maintained on a sliding scale insulin with basal insulin. The patient has underlying dyslipidemia and history of CAD. The patient was maintained on statins for the same. The patient was noticed to have normocytic normochromic anemia. However, the patient's H and H remained stable and required no blood transfusion. The patient was seen and evaluated by physical therapy and speech therapy. Physical therapy recommended home health physical therapy evaluation. Speech therapy recommended a regular consistency diet and no aspiration precautions. The patient had a stable hospital course. The patient was cleared by consultants to be discharged home. The patient denied any complaints other than some expressive aphasia at the time of discharge. DISCHARGE DISPOSITION/PLAN: The patient will be discharged home today. The patient was instructed to take a low cholesterol carbohydrate controlled diet. The patient was instructed to resume activities as tolerated; however, to exercise fall precautions to avoid any falls. The patient was instructed to take medications as per prescription and to resume taking Xarelto after the 7 day dose of aspirin, which is from 02/22/2017. She was instructed to follow with Dr. Coe, neurology, in 2 weeks and to please call for appointment. She was also instructed to follow up with her own curing machine operator as scheduled. She was instructed to call 911 or go to the nearest emergency room if she has any chest pain, sudden onset of focal weakness, or any new speech disturbances. The patient verbalized understanding of her discharge instructions. CONDITION AT DISCHARGE: Stable. DISCHARGE MEDICATIONS: 1. Amoxicillin 500 mg p.o. q. 8 hours. 2. Aspirin 81 mg p.o. daily. 3. Atorvastatin 20 mg p.o. at bedtime. 4. Metformin 500 mg p.o. with breakfast and dinner. 5. Amlodipine 10 mg p.o. daily. 6. Calcium with vitamin D3 one tablet p.o. daily. 7. Lasix 40 mg p.o. daily. 8. Gabapentin 300 mg p.o. t.i.d. 9. Glipizide 5 mg p.o. b.i.d. 10. Lopressor 25 mg p.o. b.i.d. 11. [place] 3 fatty acids 1000 mg p.o. daily. 12. Omeprazole 40 mg p.o. b.i.d. 13. Xarelto 15 mg p.o. daily to start from 02/22/2017. 14. Carafate 1 gram p.o. b.i.d. PERTINENT LABORATORIES AND DIAGNOSTIC DATA: 1. 2-D echocardiogram. Ejection fraction of greater than 70%. Hyperdynamic systolic function. Moderate left atrial enlargement. Estimated RVSP of 51 mmHg. 2. Latest brain CT scan on 02/13/2017. Interval subcortical hypoattenuation of the left inferior frontal lobe, frontal operculum and left insula, compatible with recent subacute left MCA territory infarct. 3. Carotid Doppler study. No hemodynamically significant stenosis. Antegrade flow seen within the vertebral arteries bilaterally. Hemoglobin A1c 6.6. 4. Fasting lipid panel: Triglycerides 49, total cholesterol 133, LDL 77, AST 46. 5. Latest CBC: WBC 3.5, hemoglobin 11.4, hematocrit 34.2, platelet count 293. 6. Latest BMP: Sodium 135, potassium 3.6, chloride 104, carbon dioxide 27, anion gap 10, BUN 7, creatinine 0.52, glucose 133. Calcium 8.3, magnesium 1.8. 7. Urine culture positive for E. coli. 8. Hemoglobin A1c 6.6. At this time, we would like to thank all the consultants for seeing the patient and providing clinical recommendations. The case and management of this patient was fully discussed with Dr. [place]. Approximately 40 minutes was spent on coordinating the discharge on this patient. MANIJT CHINO MD, AM/JEOVANNY Conf#: [id number] DID#: [id number]
== END 2017-02-14 20:23 | disposition home health service (06) | DRG 64 ==
LOC: E/R 01:55 → TEL 04:17
PROVIDERS: ADMIT Internal Medicine; ATTEND Internal Medicine
DX: I63.9 Cerebral infarction, unspecified (principal); G93.41 Metabolic encephalopathy; I48.92 Unspecified atrial flutter; I27.2 Other secondary pulmonary hypertension; E87.1 Hypo-osmolality and hyponatremia; R13.10 Dysphagia, unspecified; N39.0 Urinary tract infection, site not specified; R47.01 Aphasia; E11.9 Type 2 diabetes mellitus without complications; Z95.0 Presence of cardiac pacemaker; Z95.1 Presence of aortocoronary bypass graft; E78.5 Hyperlipidemia, unspecified
CPT/HCPCS: 36415; 70450; 71010; 80048; 80053; 80061; 81001; 81003; 82962; 83036; 83735; 84100; 84439; 84443; 84484; 85025; 85610; 85730; 87086; 92526; 92610; 93005; 93306; 93880; 96372; 96374; 97163; J1940; J0360; J0696; J1644; J1815; J7030